=== PATIENT | female | born 1995 | race African-American/Black ===

== ENCOUNTER 2018-08-30 10:42 | Outpatient (CLI) | payer OTHER ==
[2018-08-30 18:53] LABS: BASOPHILS % (AUTO) 0.1 %; EOSINOPHILS # (AUTO) 0.1 10^3/uL (0.0-0.7); EOSINOPHILS % (AUTO) 0.8 %; HGB - HEMOGLOBIN 11.7 g/dL (12.0-16.0); LYMPHOCYTES # (AUTO) 1.8 10^3/uL (1.5-3.5); LYMPHOCYTES % (AUTO) 19.8 %; MEAN CORPUSCULAR HEMOGLOBIN 26.2 pg (27.0-31.0); MEAN CORPUSCULAR HGB CONC 32.3 g/dL (32.0-36.0); MEAN CORPUSCULAR VOLUME 81.2 fL (81.0-99.0); MEAN PLATELET VOLUME 9.8 fL (7.9-10.8); MONOCYTES # (AUTO) 0.4 10^3/uL (0.0-1.0); MONOCYTES % (AUTO) 4.3 %; NEUTROPHILS # (AUTO) 6.8 10^3/uL (1.5-6.6); PLT - PLATELET COUNT 258 10^3/uL (130-450); RED BLOOD COUNT 4.48 10^6/uL (4.20-5.40); RED CELL DISTRIBUTION WIDTH 14.7 % (12.0-15.0)
[2018-08-30 19:38] LABS: HB2 TOTAL 12.2 g/dL; HEMOGLOBIN A1C 0.57 g/dL; HEMOGLOBIN A1C % 6.4 % (4.6-6.2)
[2018-08-30 19:42] LABS: ALBUMIN 3.8 g/dL (3.2-5.5); ALBUMIN/GLOBULIN RATIO 0.8 (1.0-2.2); ALKALINE PHOSPHATASE 56 IU/L (42-121); ALT ALANINE AMINOTRANSFERASE 17 IU/L (10-60); AST ASPARTATE AMINOTRANSFERASE 19 IU/L (10-42); BILIRUBIN,TOTAL 0.6 mg/dL (0.2-1.0); BUN - BLOOD UREA NITROGEN 14 mg/dL (6-20); CARBON DIOXIDE - CO2 24 mmol/L (21-32); CHLORIDE 102 mmol/L (101-111); CHOL/HDL RATIO 2.6 (<4.4); CHOLESTEROL 90 mg/dL; CREATININE 0.6 mg/dL (0.4-1.0); GFR - MDRD 153 (>89); GLUCOSE 95 mg/dL (70-100); HDL CHOLESTEROL 35 mg/dL; LDL CHOLESTEROL,CALCULATED 40 mg/dL; LDL/HDL RATIO 1.1 (<4.4); SODIUM 137 mmol/L (135-145); TOTAL PROTEIN 8.3 g/dL (6.7-8.2); VLDL CHOLESTEROL 15 mg/dL
== END 2018-08-30 10:43 | disposition home or self-care (01) ==
LOC: LAB.WCP 10:42
PROVIDERS: ATTEND Family Medicine
DX: E11.9 Type 2 diabetes mellitus without complications (principal)
CPT/HCPCS: 36415; 80050; 80061; 83036; 83721

== ENCOUNTER 2018-09-14 08:00 | Outpatient (CLI) | payer OTHER ==
[2018-09-14 18:54] LABS: ABSOLUTE RETICS # AUTO 0.083 10^6/uL (0.020-0.110); MEAN RETIC VALUE 108.8; RED BLOOD COUNT 4.5 10^6/uL (4.20-5.40)
[2018-09-14 19:11] LABS: % IRON SATURATION 14 % (20-50); IRON 54 ug/dL (28-170); TOTAL IRON BINDING CAPACITY 389 ug/dL (250-450); TRANSFERRIN 278 mg/dL (192-382)
[2018-09-14 19:16] LABS: HB2 TOTAL 12.7 g/dL; HEMOGLOBIN A1C 0.62 g/dL; HEMOGLOBIN A1C % 6.6 % (4.6-6.2)
[2018-09-14 19:27] LABS: FERRITIN 47.9 ng/mL (11.0-306.8)
[2018-09-14 19:30] LABS: FOLATE 7.5 ng/mL (5.90 - >24.8)
== END 2018-09-14 23:59 | disposition home or self-care (01) ==
LOC: LAB.WCP 08:00
PROVIDERS: ATTEND Family Medicine
DX: D64.9 Anemia, unspecified (principal); E11.9 Type 2 diabetes mellitus without complications
CPT/HCPCS: 36415; 81599; 82607; 82728; 82746; 83036; 83540; 84466; 85044; 86341